=== PATIENT | female | born 1965 | race Caucasian/White ===

== ENCOUNTER 2019-01-06 11:33 | Day surgery (SDC) | payer BC ==
[2019-01-06] MEDS ORDERED: PROPOFOL 20 ML (13:41)
[2019-01-06] MEDS ORDERED: LIDOCAINE 2% (SDV) 5 ML INJ (13:41)
== END 2019-01-06 16:14 | disposition home or self-care (01) ==
LOC: GIL 11:33
DX: K21.9 Gastro-esophageal reflux disease without esophagitis (principal); K29.60 Other gastritis without bleeding; I10 Essential (primary) hypertension; E11.9 Type 2 diabetes mellitus without complications; E78.5 Hyperlipidemia, unspecified
CPT/HCPCS: 43239; 88305

== ENCOUNTER 2019-03-08 13:57 | Emergency (ER) | payer BC | END 2019-03-08 15:36 | disposition home or self-care (01) | LOC: FTE 15:36 | DX: M25.562 Pain in left knee (principal); I10 Essential (primary) hypertension | CPT/HCPCS: 73562; 93971; 99284-25 ==